=== PATIENT | male | born 1995 | race Caucasian/White ===

== ENCOUNTER 2016-09-02 12:22 | Observation (INO) | payer BC ==
[~2016-09-02] VITALS: Ht 180.3 cm; Wt 70.5 kg
[2016-09-02 12:37] VITALS: TEMP 98
[2016-09-02] MEDS ORDERED: PROAIR HFA0.09 MG/AC IH (12:42)
[2016-09-02 13:13] LABS: BASO # 0.1 (0.0-0.2); BASO % 0.3 % (0.0-2.0); EOS # 0.4 (0.0-0.7); EOS % 2.7 % (0-4.0); GRAN # 10.3 (1.4-6.5); GRAN % 67.7 % (42.2-75.2); HEMATOCRIT 40.6 % (36.0-47.0); HEMOGLOBIN 14.2 g/dl (12.5-16.1); LYMPH # 3.4 (1.2-3.4); LYMPH % 22.6 % (20.0-51.0); MEAN CELL VOLUME 89 fl (80.0-95.0); MEAN CORPUSCULAR HEMOGLOBIN 31 pg (26.0-32.0); MEAN CORPUSCULAR HGB CONC 35 g/dl (33.0-37.0); MEAN PLATELET VOLUME 9.7 fl (7.4-10.4); MONO % 6.3 % (1.7-9.3); PLATELET COUNT 247 K/mm3 (130-400); RED BLOOD COUNT 4.54 M/mm3 (4.20-5.60); REDCELL DISTRIBUTION WIDTH-CV 12.7 % (11.5-14.5); WHITE BLOOD COUNT 15.2 K/mm3 (4.8-10.8)
[2016-09-02 16:50] VITALS: BP 106/54; PULSE 73
[2016-09-02 17:05] VITALS: BP 103/49; PULSE 70
[2016-09-02 17:20] VITALS: BP 108/52; PULSE 83
[2016-09-02 17:35] VITALS: BP 103/52; PULSE 83
== END 2016-09-02 20:41 | disposition home or self-care (01) ==
LOC: COL.ER 12:22 → OR 14:29 → JCC 16:50
PROVIDERS: Family Medicine
DX: S62.511B Displaced fracture of proximal phalanx of right thumb, initial encounter for open fracture (principal); S66.119A Strain of flexor muscle, fascia and tendon of unspecified finger at wrist and hand level, initial encounter; J45.909 Unspecified asthma, uncomplicated; F17.210 Nicotine dependence, cigarettes, uncomplicated
CPT/HCPCS: J0690; J1170; J2250; J2405; J2704; J2765; J3010; J7030; J7120